=== PATIENT | female | born 1960 | race Caucasian/White ===

== ENCOUNTER 2016-05-13 21:28 | Emergency (ER) | payer BC | END 2016-05-13 22:30 | disposition left against medical advice (07) | LOC: ER 21:28 | DX: Z53.20 Procedure and treatment not carried out because of patient's decision for unspecified reasons (principal) ==

== ENCOUNTER 2016-08-17 15:19 | Emergency (ER) | payer BC ==
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
[2016-08-17] MEDS ORDERED: 0.9 % SODIUM CHLORIDE 1,000 ML BAG IV ONE (15:46)
[2016-08-17] MEDS ORDERED: DICYCLOMINE HCL 10 MG/ML AMPUL IM ONE (15:54)
[2016-08-17 15:55] LABS: BASO % 0.1 % (0-6); EOS % 1.3 % (0-6); HEMATOCRIT 44.6 % (35.0-47.0); HEMOGLOBIN 15.2 gm/dl (11.6-16.0); LYMPH % 34.2 % (16-45); MEAN CELL VOLUME 94.7 fl (81-97); MEAN CORPUSCULAR HEMOGLOBIN 32.3 pg (27-33); MEAN CORPUSCULAR HGB CONC 34.1 g/dl (32-36); MEAN PLATELET VOLUME 10.9 fl (7.4-10.4); MONO % 6.4 % (0-9); PLATELET COUNT 199 K/uL (130-400); RED BLOOD COUNT 4.71 M/uL (3.80-5.40); RED CELL DISTRIBUTION WIDTH 13.8 % (11.5-14.5); WHITE BLOOD COUNT W/O DIFF 6.9 K/uL (4.2-12.2)
[2016-08-17 16:01] LABS: URINE APPEARANCE CLEAR; URINE BILIRUBIN NEGATIVE (NEGATIVE); URINE BLOOD NEGATIVE (NEGATIVE); URINE COLOR YELLOW; URINE GLUCOSE (UA) NEGATIVE (NEGATIVE); URINE KETONE NEGATIVE (NEGATIVE); URINE LEUKOCYTE ESTERASE NEGATIVE (NEGATIVE); URINE NITRITE NEGATIVE (NEGATIVE); URINE PROTEIN NEGATIVE (NEGATIVE); URINE UROBILINOGEN 0.2 E.U./dL (0.20 - 1.00)
[2016-08-17 16:08] LABS: ALBUMIN 4.6 gm/dL (3.5-5.0); ALKALINE PHOSPHATASE 127 U/L (38-126); ALT/SGPT 150 U/L (9-52); ANION GAP 10.7 (7-16); AST/SGOT 113 U/L (14-36); BILIRUBIN,TOTAL 0.77 mg/dL (0.2-1.3); BLOOD UREA NITROGEN 10 mg/dL (7-17); CARBON DIOXIDE 27.3 mmol/L (22-30); CREATININE 0.8 mg/dL (0.52-1.04); EST GLOMERULAR FILTRATION RATE > 60 ml/min; GLUCOSE,RANDOM 117 mg/dL (70-110); LIPASE 87 U/L (23-300); TOTAL PROTEIN 8.4 gm/dL (6.3-8.2)
--- NOTE | 2016-08-19 00:12 | CT SCAN REPORT ---
EXAM: CT SCAN ABDOMEN/PELVIS WO CONTRAST HISTORY: THE PATIENT HAS LOWER ABDOMINAL PAIN. TECHNIQUE: Serial axial CT scan of the abdomen and pelvis was performed at 3.75 mm intervals from the dome of the diaphragm down to the pubic symphysis without the use of intravenous or oral contrast. COMPARISON: CT scan of the abdomen and pelvis dated 11/23/10 is provided. FINDINGS: Lung windows of the lung bases demonstrate linear subsegmental atelectasis and/or scarring at the left lung base. The liver demonstrates diffuse fatty infiltration. Size and contour of the liver is within normal limits. No suspicious focal hepatic lesions are identified. The spleen, pancreas, bilateral adrenal glands, gallbladder are unremarkable. There is no CT evidence of hydronephrosis or hydroureter. No renal or ureteral calculi are noted. The contour, caliber of the noncontrast upper abdominal aorta is within normal limits. There is no CT evidence of retroperitoneal, pelvic, or inguinal lymphadenopathy. The bowel gas pattern is nonspecific and nonobstructive. Colonic diverticula are noted without CT evidence of diverticulitis. The appendix is clearly visualized and there is no CT evidence of appendicitis. There is no CT evidence of free intraperitoneal air or free intraperitoneal fluid. Anterior abdominal wall is unremarkable. Urinary bladder is unremarkable. Uterus is absent. Bone windows demonstrate multilevel degenerative disc disease. Bilateral L5 pars lamina defects are identified with grade 1 spondylolisthesis at the L5-S1 disc space level. The patient has levoconvex scoliosis of the lumbar spine. 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 IMPRESSION: 1. NO CT EVIDENCE OF AN ACUTE INTRAABDOMINAL PROCESS. 2. COLONIC DIVERTICULA ARE NOTED WITHOUT CT EVIDENCE OF DIVERTICULITIS. 3. LEVOCONVEX SCOLIOSIS OF THE LUMBAR SPINE WITH DEGENERATIVE CHANGE. JOB NUMBER: [id number] [facility]
== END 2016-08-17 18:20 | disposition home or self-care (01) ==
LOC: ER 15:19
DX: K57.92 Diverticulitis of intestine, part unspecified, without perforation or abscess without bleeding (principal); R10.30 Lower abdominal pain, unspecified
CPT/HCPCS: 74176; 80048; 80076; 81003; 83690; 85025; 96372; 99284; J7030

== ENCOUNTER 2017-05-03 08:46 | Emergency (ER) | payer OTHER ==
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
== END 2017-05-03 09:28 | disposition home or self-care (01) ==
LOC: ER 08:46
DX: S61.211A Laceration without foreign body of left index finger without damage to nail, initial encounter (principal); W26.9XXA Contact with unspecified sharp object(s), initial encounter; Y92.009 Unspecified place in unspecified non-institutional (private) residence as the place of occurrence of the external cause
CPT/HCPCS: 12002; 99283